=== PATIENT | female | born 1985 | race Caucasian/White ===

== ENCOUNTER 2018-01-29 10:46 | Emergency (ER) | payer OTHER ==
[~2018-01-29] VITALS: Ht 162.6 cm; Wt 87.1 kg
[2018-01-29 10:52] VITALS: BP 145/91
--- NOTE | 2018-01-29 12:58 | ED EYE COMPLAINT ---
History of Present Illness General Chief Complaint: Eye Problems Stated Complaint: PER PT"I HAVE A CONSTANT FLECTION IN MY EYE" Source: patient Exam Limitations: no limitations Vital Signs & Intake/Output Vital Signs & Intake/Output Vital Signs Date Time Temp Pulse Resp B/P B/P Pulse O2 O2 Flow FiO2 Mean Ox Delivery Rate 01/29 1052 97.6 76 15 145/91 99 Room Air Room Air Allergies Coded Allergies: morphine (SEVERELY ITCHY 01/29/18) Reconcile Medications No Known Home Medications Triage Note: PT TO ED FOR C/C OF R EYE "IT SEEMS LIKE THERE IS A REFLECTION OF A FAN WITH LIGHTS BEHIND IT." STARTED AROUND 0830 TODAY, NO PAIN, NO LOSS OF VISION. DENIES HEADACHE. Triage Nurses Notes Reviewed? yes Onset: Abrupt Duration: hour(s): (2), better, gone now Timing: single episode today Injury Environment: home Severity: mild, moderate No Modifying Factors: none Right Eye Associated Symptoms: SEE HPI LMP (ages 10-50): unknown : No Patient currently breastfeeds: No HPI: 32-year-old female with no medical history presents for evaluation of a right eye visual change. Patient reports approximately 2 hours ago she noted "IT SEEMS LIKE THERE IS A REFLECTION OF A FAN WITH LIGHTS BEHIND IT". Patient states this lasted approximately 2 hours and then completely resolved. There is no dizziness lightheadedness eye pain headaches chest pain shortness of breath one-sided weakness or any other associated symptoms. No slurred speech. She does not wear glasses or contacts. She has never had this before. No eye discharge no redness. She does report that there is very bright lights at her work. Past History Travel History Traveled to [place] past 21 day No Medical History Any Pertinent Medical History? see below for history Neurological: NONE EENT: NONE Cardiovascular: NONE Respiratory: NONE Gastrointestinal: NONE Hepatic: NONE Renal: NONE Musculoskeletal: NONE Psychiatric: NONE Endocrine: NONE Blood Disorders: NONE Cancer(s): NONE SENIOR ANDROID SOFTWARE ENGINEER/Reproductive: NONE Surgical History Surgical History: non-contributory Psychosocial History What is your primary language Citizen Of [place] Tobacco Use: Current Daily Use Daily Tobacco Use Amount/Type: => 5 Cigarettes daily ETOH Use: denies use Illicit Drug Use: denies illicit drug use Family History Hx Contributory? No Review of Systems Review of Systems Constitutional: Reports: no symptoms. Eyes: Reports: vision change. Ear: Reports: no symptoms. Nose: Reports: no symptoms. Mouth: Reports: no symptoms. Throat: Reports: no symptoms. Respiratory: Reports: no symptoms. Cardiovascular: Reports: no symptoms. GI: Reports: no symptoms. Genitourinary: Reports: no symptoms. Musculoskeletal: Reports: no symptoms. Skin: Reports: no symptoms. Neurological/Psychological: Reports: no symptoms. Hematologic/Endocrine: Reports: no symptoms. Immunologic/Allergic: Reports: no symptoms. All Other Systems: Reviewed and Negative Physical Exam General Appearance: well developed/nourished, no apparent distress, alert, awake General Inspection: normal inspection Eyelid: normal inspection, everted for exam Conjunctiva/Sclera: normal inspection, see diagram Cornea: normal inspection, examined w/fluorescein EOM: intact Pupil: normal accommodation, normal pupil, PERRL Anterior Chamber: normal inspection, see diagram General Inspection: normal inspection Eyelid: normal inspection, everted for exam Conjunctiva/Sclera: normal inspection Cornea: normal inspection EOM: intact Pupil: normal accommodation, normal pupil, PERRL Anterior Chamber: normal inspection Posterior Segments: normal funduscopic Physical Exam Head: atraumatic, normal appearance Ears: Bilateral: canal normal, Tympanic normal. 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 Symptoms lasted about 2 hours likely resolve. Currently patient is asymptomatic and feels well. Examination of her eyes within normal limits. Visual acuity is within normal limits. Patient will be discharged with instructions to follow-up with her eye doctor. Discussed return precautions patient agrees to plan Departure Departure Disposition: HOME OR SELF CARE Condition: Stable Clinical Impression Primary Impression: Change in vision Referrals: Patient Has No Primary Care Dr (PCP/Family) Susan DICKINSON,Santo Young MD,Heath Montoya Additional Instructions: make a follow up with provided eye doctors [place]. return with any concerns. Departure Forms: Customer Survey General Discharge Information Prescriptions: Current Visit Scripts No Known Home Medications
== END 2018-01-29 13:16 ==
LOC: ERH 10:46
DX: H53.8 Other visual disturbances (principal); F17.210 Nicotine dependence, cigarettes, uncomplicated
CPT/HCPCS: 99282